=== PATIENT | male | born 1985 | race African-American/Black ===

== ENCOUNTER 2024-06-21 19:17 | Inpatient (IN) | payer MEDICAID, OTHER ==
--- NOTE | 2024-06-21 20:44 | ED ---
Psych HPI - General Chief Complaint: Psychiatric Symptoms Stated Complaint: Suicidal Time Seen by Provider: 06/21/24 20:41 Source: patient, RN notes reviewed Mode of arrival: ambulatory - History of Present Illness Initial Comments: 39-year-old male presenting for suicidal and homicidal ideation. States this has been ongoing over the past week however worsened in severity today. States he is having thoughts of harming himself and having auditory hallucinations telling him to harm others. States he has had hallucinations before but worsened in severity while he was in residential. He has been out of residential and on parole since 4 months ago. He began drinking alcohol around noon today. - Related Data Home Medications Medication Instructions Recorded Confirmed Acetaminophen Tab [Tylenol] 650 mg PO Q4H PRN 06/21/24 06/21/24 Aspirin EC [Ecotrin] 650 mg PO Q6H PRN 06/21/24 06/21/24 Ibuprofen [Motrin Ib] 400 mg PO Q6H PRN 06/21/24 06/21/24 PARoxetine [Paxil] 20 mg PO DAILY 06/21/24 06/21/24 QUEtiapine [SEROquel] 100 mg PO HS 06/21/24 06/21/24 Allergies Allergy/AdvReac Type Severity Reaction Status Date / Time diphenhydramine AdvReac "feels Verified 06/21/24 20:39 [From Johnna] miles" Review of Systems ROS Statement: Those systems with pertinent positive or pertinent negative responses have been documented in the HPI. ROS Other: All systems not noted in ROS Statement are negative. Past Medical History Additional Past Medical History / Comment(s): high blood pressure History of Any Multi-Drug Resistant Organisms: None Reported Additional Past Surgical History / Comment(s): sx on arms Past Psychological History: PTSD Smoking Status: Current every day smoker Past Alcohol Use History: Occasional Past Drug Use History: None Reported General Exam General appearance: alert, in no apparent distress, other (No eye contact) Head exam: Present: atraumatic, normocephalic, normal inspection Respiratory exam: Present: normal lung sounds bilaterally. Absent: respiratory distress, wheezes, rales, rhonchi, stridor Cardiovascular Exam: Present: regular rate, normal rhythm, normal heart sounds. Absent: systolic murmur, diastolic murmur, rubs, gallop, clicks Neurological exam: Present: alert, oriented X3 Psychiatric exam: Present: normal affect, normal mood, homicidal ideation, suicidal ideation Skin exam: Present: warm, dry, intact, normal color. Absent: rash Course Vital Signs 06/21/24 19:19 Temperature 98.3 F Pulse Rate 118 H Respiratory 18 Rate Blood Pressure 134/90 O2 Sat by Pulse 96 Oximetry Medical Decision Making - Medical Decision Making Was pt. sent in by a medical professional or institution (, PA, DAIRY FARMER, urgent care, hospital, or [facility]...) When possible be specific @ -No Did you speak to anyone other than the patient for history (EMS, parent, family, police, friend...)? What history was obtained from this source @ -No Did you review nursing and triage notes (agree or disagree)? Why? @ -I reviewed and agree with nursing and triage notes Were old charts reviewed (outside hosp., previous admission, EMS record, old EKG, old radiological studies, urgent care reports/EKG's, [facility] records)? Report findings @ -No old charts were reviewed Differential Diagnosis (chest pain, altered mental status, abdominal pain women, abdominal pain men, vaginal bleeding, weakness, fever, dyspnea, syncope, headache, dizziness, GI bleed, back pain, seizure, CVA, palpatations, mental health, musculoskeletal)? @ -Differential Mental Health Depression, anxiety, bipolar, psychosis, schizophrenia, borderline personality, situational depression, adjustment disorder, behavioral disorder, brain tumor, malingering, substance abuse, encephalopathy, medication reaction, dementia, hypothyroidism, degenerative neurologic disorder, lupus.... This is not meant to be all-inclusive list EKG interpreted by me (3pts min.). @ -None X-rays interpreted by me (1pt min.). @ -None done CT interpreted by me (1pt min.). @ -None done U/S interpreted by me (1pt. min.). @ -None done What testing was considered but not performed or refused? (CT, X-rays, U/S, labs)? Why? @ -None What meds were considered but not given or refused? Why? @ -None Did you discuss the management of the patient with other professionals (professionals i.e. , PA, DAIRY FARMER, lab, RT, psych nurse, long term care social worker, component design engineer, teacher, chief digital media officer, case management specialist)? Give summary @ -I spoke with EPS who recommends admission Was smoking cessation discussed for >3mins.? @ -No Was critical care preformed (if so, how long)? @ -No Were there social determinants of health that impacted care today? How? (Homelessness, low income, unemployed, alcoholism, drug addiction, transportation, low edu. Level, literacy, decrease access to med. care, residential, rehab)? @ -No Was there de-escalation of care discussed even if they declined (Discuss DNR or withdrawal of care, Hospice)? DNR status @ -No What co-morbidities impacted this encounter? (DM, HTN, Smoking, COPD, CAD, Cancer, CVA, ARF, Chemo, Hep., AIDS, mental health diagnosis, sleep apnea, mor bid obesity)? @ -None Was patient admitted / discharged? Hospital course, mention meds given and rou te, prescriptions, significant lab abnormalities, going to OR and other pertinent info. @ - admitted. 39-year-old male presenting for suicidal and homicidal ideation. States he is experiencing auditory hallucinations telling him to hurt people. No medical complaints. BAT 0.07. Serum alcohol 95. Patient is medically cleared to be seen by EPS. EPS recommends psychiatric admission. I agree with this plan. Case was discussed with my ED attending Dr. Desai. Undiagnosed new problem with uncertain prognosis? @ -No Drug Therapy requiring intensive monitoring for toxicity (Heparin, Nitro, In sulin, Cardizem)? @ -No Were any procedures done? @ -No Diagnosis/symptom? @ -Suicidal ideation, homicidal ideation Acute, or Chronic, or Acute on Chronic? @ -Acute Uncomplicated (without systemic symptoms) or Complicated (systemic symptoms)? @ -Complicated Side effects of treatment? @ -No Exacerbation, Progression, or Severe Exacerbation? @ -No Poses a threat to life or bodily function? How? (Chest pain, [place], RI, pneumonia, PE, COPD, DKA, ARF, appy, cholecystitis, CVA, Diverticulitis, Homicidal, Suicidal, threat to staff... and all critical care pts) @ -Yes, suicidal, homicidal - Lab Data Result diagrams: 06/21/24 21:27 06/21/24 21:27 Lab Results 06/21/24 06/21/24 Range/Units 21:27 21:27 WBC 5.2 (3.8-10.6) k/uL RBC 5.43 (4.30-5.90) m/uL Hgb 16.6 (13.0-17.5) gm/dL Hct 50.5 (39.0-53.0) % MCV 93.0 (80.0-100.0) fL MCH 30.6 (25.0-35.0) pg MCHC 32.9 (31.0-37.0) g/dL RDW 12.9 (11.5-15.5) % Plt Count 290 (150-450) k/uL MPV 7.3 Neutrophils % 54 % Lymphocytes % 34 % Monocytes % 5 % Eosinophils % 3 % Basophils % 1 % Neutrophils # 2.8 (1.3-7.7) k/uL Lymphocytes # 1.8 (1.0-4.8) k/uL Monocytes # 0.3 (0-1.0) k/uL Eosinophils # 0.2 (0-0.7) k/uL Basophils # 0.0 (0-0.2) k/uL Sodium 139 (137-145) mmol/L Potassium 4.4 (3.5-5.1) mmol/L Chloride 101 (98-107) mmol/L Carbon Dioxide 25 (22-30) mmol/L Anion Gap 13 mmol/L BUN 10 (9-20) mg/dL Creatinine 1.17 (0.66-1.25) mg/dL Est GFR (CKD-EPI)AfAm >90 (>60 ml/min/1.73 sqM) Est GFR (CKD-EPI)NonAf 78 (>60 ml/min/1.73 sqM) Glucose 91 (74-99) mg/dL Calcium 9.7 (8.4-10.2) mg/dL Total Bilirubin 0.5 (0.2-1.3) mg/dL AST 35 (17-59) U/L ALT 59 H (4-49) U/L Alkaline Phosphatase 67 (38-126) U/L Total Protein 8.3 H (6.3-8.2) g/dL Albumin 4.9 (3.5-5.0) g/dL Serum Alcohol 95 mg/dL Disposition Clinical Impression: Suicidal ideation, Homicidal ideation Disposition: ADMITTED IP TO THIS HOSP Referrals: Castleton,Cedrick G, MD [Primary Care Provider] - 1-2 days Time of Disposition: 22:50
[2024-06-21] MEDS: IBUPROFEN 600 MG TAB PO STA (21:11)
[2024-06-21 21:50] LABS: Basophils % (A) 1 %; Eosinophils # (A) 0.2 k/uL (0-0.7); Eosinophils % (A) 3 %; HCT 50.5 % (39.0-53.0); HGB 16.6 gm/dL (13.0-17.5); Lymphocytes # (A) 1.8 k/uL (1.0-4.8); Lymphocytes % (A) 34 %; MCH 30.6 pg (25.0-35.0); MCHC 32.9 g/dL (31.0-37.0); Mean Platelet Volume 7.3; Monocytes # (A) 0.3 k/uL (0-1.0); Monocytes % (A) 5 %; Neutrophils # (A) 2.8 k/uL (1.3-7.7); Neutrophils % (A) 54 %; Platelet Count 290 k/uL (150-450); RBC 5.43 m/uL (4.30-5.90); RDW 12.9 % (11.5-15.5); WBC 5.2 k/uL (3.8-10.6)
[2024-06-21 22:05] LABS: ALT 59 U/L (4-49); AST 35 U/L (17-59); African American GFR (CKD) >90 (>60 ml/min/1.73 sqM); Albumin 4.9 g/dL (3.5-5.0); Alkaline Phosphatase 67 U/L (38-126); Anion Gap 13 mmol/L; Blood Urea Nitrogen 10 mg/dL (9-20); Calcium 9.7 mg/dL (8.4-10.2); Carbon Dioxide 25 mmol/L (22-30); Chloride 101 mmol/L (98-107); Glucose 91 mg/dL (74-99); Non-African American GFR(CKD) 78 (>60 ml/min/1.73 sqM); Potassium 4.4 mmol/L (3.5-5.1); Sodium 139 mmol/L (137-145); Total Bilirubin 0.5 mg/dL (0.2-1.3); Total Protein 8.3 g/dL (6.3-8.2)
[2024-06-21 22:34] LABS: Alcohol 95 mg/dL
[2024-06-22 01:21] LABS: Influenza A Not Detected (Not Detectd); Influenza B Not Detected (Not Detectd); RSV Not Detected (Not Detectd)
[2024-06-22] MEDS ORDERED: HALOPERIDOL LACTATE 5 MG/ML 1 ML VIAL IM PRN (03:15)
[2024-06-22] MEDS ORDERED: haloperidoL 5 MG TAB PO PRN (03:15)
[2024-06-22] MEDS ORDERED: ACETAMINOPHEN TAB 325 MG TAB PO PRN (03:15)
[2024-06-22] MEDS ORDERED: MAGNESIUM HYDROXIDE 2,400 MG/30 ML CUP PO PRN (03:15)
[2024-06-22] MEDS ORDERED: LORazepam 2 MG/ML INJ IM PRN (03:15)
[2024-06-22] MEDS ORDERED: LORazepam 1 MG TAB PO PRN ×2 (03:15)
[2024-06-22] MEDS ORDERED: MAG HYDROX/AL HYDROX/SIMETH 355 ML BOTTLE PO PRN (03:15)
[2024-06-22] MEDS ORDERED: traZODone HCL 50 MG TAB PO PRN (03:15)
[2024-06-22] MEDS: NICOTINE 14MG/24HR PATCH TRANSDERM SCH (08:49)
--- NOTE | 2024-06-22 16:36 | P.HP ---
Psychiatric H&P - . H&P Date: 06/22/24 History & Physical: Allergies Allergy/AdvReac Type Severity Reaction Status Date / Time diphenhydramine AdvReac "feels Verified 06/21/24 20:39 [From Benadryl] weird" Vital Signs Temp 96.7 F L 06/22/24 04:39 Pulse 84 06/22/24 04:39 Resp 16 06/22/24 04:39 BP 128/58 06/22/24 04:39 Pulse Ox 97 06/22/24 04:39 FiO2 Intake & Output 06/21/24 06/22/24 06/22/24 18:59 06:59 18:59 Weight 79.379 kg Laboratory Last Values WBC 5.2 k/uL (3.8-10.6) 06/21/24 21: RBC 5.43 m/uL (4.30-5.90) 06/21/24 21:27 Hgb 16.6 gm/dL (13.0-17.5) 06/21/24 21: Hct 50.5 % (39.0-53.0) 06/21/24 21: MCV 93.0 fL (80.0-100.0) 06/21/24 21: MCH 30.6 pg (25.0-35.0) 06/21/24 21: MCHC 32.9 g/dL (31.0-37.0) 06/21/24 21: RDW 12.9 % (11.5-15.5) 06/21/24 21:27 Plt Count 290 k/uL (150-450) 06/21/24 21: MPV 7.3 06/21/24 21: Neutrophils % 54 % 06/21/24 21: Lymphocytes % 34 % 06/21/24 21: Monocytes % 5 % 06/21/24 21: Eosinophils % 3 % 06/21/24 21: Basophils % 1 % 06/21/24 21: Neutrophils # 2.8 k/uL (1.3-7.7) 06/21/24 21: Lymphocytes # 1.8 k/uL (1.0-4.8) 06/21/24 21: Monocytes # 0.3 k/uL (0-1.0) 06/21/24 21: Eosinophils # 0.2 k/uL (0-0.7) 06/21/24: Basophils # 0.0 k/uL (0-0.2) 06/21/24 21: Sodium 139 mmol/L (137-145) 06/21/24: Potassium 4.4 mmol/L (3.5-5.1) 06/21/24: Chloride 101 mmol/L (98-107) 06/21/24: Carbon Dioxide 25 mmol/L (22-30) 06/21/24: Anion Gap 13 mmol/L 06/21/24: BUN 10 mg/dL (9-20) 06/21/24: Creatinine 1.17 mg/dL (0.66-1.25) 06/21/24: Est GFR (CKD-EPI)AfAm >90 (>60 ml/min/1.73 sqM) 06/21/24: Est GFR (CKD-EPI)NonAf 78 (>60 ml/min/1.73 sqM) 06/21/24: Glucose 91 mg/dL (74-99) 06/21/24: Calcium 9.7 mg/dL (8.4-10.2) 06/21/24: Total Bilirubin 0.5 mg/dL (0.2-1.3) 06/21/24: AST 35 U/L (17-59) 06/21/24: ALT 59 U/L (4-49) H 06/21/24: Alkaline Phosphatase 67 U/L (38-126) 06/21/24: Total Protein 8.3 g/dL (6.3-8.2) H 06/21/24: Albumin 4.9 g/dL (3.5-5.0) 06/21/24: Serum Alcohol 95 mg/dL 06/21/24 21: Influenza Type A (PCR) Not Detected (Not Detectd) 06/22/24 00:36 Influenza Type B (PCR) Not Detected (Not Detectd) 06/22/24 00:36 RSV (PCR) Not Detected (Not Detectd) 06/22/24 00:36 SARS-CoV-2 (PCR) Not Detected (Not Detectd) 06/22/24 00:36 06/22/24 16:30 39-year-old male presenting for suicidal and homicidal ideation. States this has been ongoing over the past week however worsened in severity today. States he is having thoughts of harming himself and having auditory hallucinations telling him to harm others. States he has had hallucinations before but worsened in severity [facility] was [facility]. He has been out of [facility] and on [facility] since 4 months ago. He began drinking alcohol around noon today. He says he does not have a long-term history of psychosis although he has been treated with low-dose Seroquel for many years. He says when seems are brought this on was isolation he experienced in [facility] and then he began to feel like people were talking about him and plotting against him saying things about him and threatening him he began to hear voices and the voices told him that he was in danger and he should hurt the other people other times told them he should hurt himself. He tried to treat IT with alcohol which made it much worse. Past history the patient been treated with low-dose Seroquel for a long time and also Paxil and he thinks maybe she get back on those. Social history the patient is the youngest of 5 children born to his parents and his father at 36 in [facility] developed some sort of cancer. His mom is still alive and he gets along well with her. He gets along well with his siblings . the patient has never been marriedhe has been with several women and has 2 children daughters 22 and 12 any still has relationships with them. In school he dropped out in the 10th grade no history He has been in [facility] for a total of 11 years mostly for abusing drugs and alcohol. He does not have a job he was on SSI before he went to [facility] is trying to get that back Mental status exam the patient is alert and cooperative he was sitting in the community room when I came to get him and he came readily. [place] and self-care gait and station are normal good eye contact. He is oriented to person place time and circumstances. He could remember 3 of 3 objects after 3 minutes and he could subtract 7 from 107 from 93 he did have to slow down and concentrate to be able to do that when asked to abstract the proverb the grass looks screen and outside offense he said make the best of what to have. General information is rather low he was not sure who the current president or previous Presidents were could not name any of the [place]. There did not seem to be any response to voices or psychotic issues while we were talking. No aggression. Assessment patient with chronic history of depression no clear mood swings and more recently the depression became severe enough to cause mild psychotic overlay that was quite dangerous. At this point I think it hernandez to control the psychosis. We may need to add something with Paxil caused him to be quite hungry and would put on weight so I think we'll stick with the Seroquel and add antidepressant later if that seems indicated. We'll start with 300 of Seroquel at night.the patient currently a danger to self and others as he has psychosis telling him to do bad things to himself and others. He is already starting to calm down by taking staying off the alcohol and he will need to go to a rehab program after this Diagnosis major depression with psychosis
[2024-06-22] MEDS: QUEtiapine 100 MG TAB PO SCH (21:09)
--- NOTE | 2024-06-23 03:14 | CONS ---
CONSULTATION CHIEF COMPLAINT: Major depression. HISTORY OF PRESENT ILLNESS: This 39-year-old gentleman presented to the emergency room complaining of suicidal thoughts. He is admitted to the psychiatric unit. Review of systems, past medical history, family history and personal and social histories are all unremarkable and detailed in his admitting summary. PHYSICAL EXAM: Deferred because the patient was not available at that time I was on the floor. DIAGNOSIS: Major depression with suicidal thoughts. RECOMMENDATIONS: None at this time. MMODL / IJN: [id number] /
[2024-06-23 07:26] LABS: Basophils % (A) 1 %; Eosinophils # (A) 0.2 k/uL (0-0.7); Eosinophils % (A) 6 %; HCT 46.6 % (39.0-53.0); HGB 14.9 gm/dL (13.0-17.5); Lymphocytes # (A) 1.9 k/uL (1.0-4.8); Lymphocytes % (A) 48 %; MCH 30.6 pg (25.0-35.0); MCHC 31.9 g/dL (31.0-37.0); MCV 95.8 fL (80.0-100.0); Mean Platelet Volume 7.5; Monocytes # (A) 0.2 k/uL (0-1.0); Monocytes % (A) 6 %; Neutrophils # (A) 1.5 k/uL (1.3-7.7); Neutrophils % (A) 38 %; Platelet Count 259 k/uL (150-450); RBC 4.86 m/uL (4.30-5.90); RDW 13.2 % (11.5-15.5)
[2024-06-23 07:46] LABS: ALT 42 U/L (4-49); AST 27 U/L (17-59); African American GFR (CKD) >90 (>60 ml/min/1.73 sqM); Albumin 3.7 g/dL (3.5-5.0); Alkaline Phosphatase 55 U/L (38-126); Anion Gap 6 mmol/L; Blood Urea Nitrogen 18 mg/dL (9-20); Calcium 9.2 mg/dL (8.4-10.2); Carbon Dioxide 31 mmol/L (22-30); Chloride 101 mmol/L (98-107); Glucose 84 mg/dL (74-99); Non-African American GFR(CKD) 78 (>60 ml/min/1.73 sqM); Potassium 4.2 mmol/L (3.5-5.1); Sodium 138 mmol/L (137-145); Total Protein 6.6 g/dL (6.3-8.2)
[2024-06-23 08:12] LABS: Bilirubin,Unconjugated 0.3 mg/dL (0.0-1.1); Total Bilirubin 0.3 mg/dL (0.2-1.3)
[2024-06-23 12:43] LABS: LDL Cholesterol,Calculated 105.2 mg/dL (0.0-131.0); VLDL Calculation 14.06 mg/dL (5.00-40.00)
--- NOTE | 2024-06-23 12:54 | P.PN ---
Subjective Progress Note Date: 06/23/24 Principal diagnosis: Major depression recurrent with psychosis Subjective: Slept well no psychotic breakthroughs, not too sleepy on Seroquel, wants to get into rehab Mental status exam the patient is alert and cooperative he was sitting in the community room when I came to get him and he came readily. [place] and self-care gait and station are normal good eye contact. He is oriented to person place time and circumstances. He could remember 3 of 3 objects after 3 minutes and he could subtract 7 from 107 from 93 he did have to slow down and concentrate to be able to do that when asked to abstract the proverb the grass looks screen and outside offense he said make the best of what to have. General information is rather low he was not sure who the current president or previous Presidents were could not name any of the [place]. There did not seem to be any response to voices or psychotic issues while we were talking. No aggression. Assessment patient with chronic history of depression no clear mood swings and more recently the depression became severe enough to cause mild psychotic overlay that was quite dangerous. At this point I think it hernandez to control the psychosis. We may need to add something for depressio but Paxil caused him to be quite hungry and would put on weight so I think we'll stick with the Seroquel and add antidepressant later if that seems indicated. We started with 300 of Seroquel at night.the patient currently a danger to self and others as he has psychosis telling him to do bad things to himself and others. He is already sta rting to calm down by taking staying off the alcohol and he will need to go to a rehab program after this Plan: no change of medications Diagnosis major depression with psychosis Objective - Vital Signs Vital signs: Vital Signs Temp 96.7 F L 06/22/24 04:39 Pulse 84 06/22/24 04:39 Resp 16 06/22/24 04:39 BP 128/58 06/22/24 04:39 Pulse Ox 97 06/22/24 04:39 FiO2 - Labs CBC & Chem 7: 06/23/24 06:36 06/23/24 06:36 Labs: Abnormal Lab Results - Last 24 Hours (Table) 06/23/24 Range/Units 06:36 Carbon Dioxide 31 H (22-30) mmol/L HDL Cholesterol 62.70 H (40.00-60.00) mg/dL
--- NOTE | 2024-06-24 16:30 | P.PN ---
Progress Note - Text Progress Note Date: 06/24/24 Interval History: Patient was directable and agreeable to speak with technical writer and editor in the office. He rep orts mood is "ok, good". At this time patient denies any suicidal or homicidal ideation, intent or plan. Patient denies any auditory, visual hallucinations and denies any paranoia or delusions. Patient denies any side effects from the medications and has been compliant with meds. He has been sleeping well, at least 7+ hours per night. He has attended one group today but missed the others. He reports he plans to go to rehab after discharge. He has the number to the Access line to call tomorrow because today is a holiday. Mental Status Exam: General Appearance: Patient appears to be stated age, hair in ziyad, dressed in black sweats, +tattoos on hands, fair hygiene/grooming. Behavior: Patient is calmly seated without any agitated behavior. Speech: Patient's speech is fluent and non-pressured. Mood/Affect: Mood is "ok, good", affect is congruent and constricted. Suicidality/Homicidality: Patient denies having any suicidal or homicidal ideation intent or plan. Perceptions: Patient denies any visual hallucinations and denies any auditory hallucinations. Though content/process: There is no evidence of any delusional thought content and thought process is linear and goal-directed. Memory and concentration: AOX3, grossly intact for the purposes of this session Judgment and insight: Improving mildly Assessment: Unspecified depressive disorder, r/o MDD vs alcohol-induced depressive disorder Alcohol use disorder, severe Plan: -Patient continues to meet criteria for inpatient psychiatric admission for symptom stabilization and safety. Patient has signed adult voluntary form and medication consent and was placed in patient's chart. -Medications: Continue Seroquel 300 mg QHS for psychosis/mood. Continue Trazodone 50 mg QHS PRN for sleep. -When necessary Ativan and Haldol for agitation/aggression. -NRT - nicotine patch -SW on board for discharge planning. Encouraged the patient to participate in milieu. -Plan to discharge in the next 1-2 days if he continues to stabilize and when bed available at rehab.
[2024-06-24] MEDS: QUEtiapine 50 MG TAB PO SCH (21:48)
[2024-06-25] MEDS ORDERED: LORazepam 1 MG TAB PO PRN (12:45)
--- NOTE | 2024-06-25 12:50 | P.PN ---
Progress Note - Text Progress Note Date: 06/25/24 Interval History: Patient was directable and agreeable to speak with appeals writer in the office. He went through an overview of how he got to the hospital. Claims that he relapsed back on drinking, was staying [facility]. States that he was having violent thoughts towards others. Claims that since being started on the Seroquel he has been doing better has been sleeping at nighttime. Claims that his appetite is also improving. Claims that his mood and anxiety have been improving at this time. He claims that he is trying to get back into rehab, waiting for [facility] to approve him. Claims that he just did the screening earlier this morning with them.. At this time patient denies any suicidal or homicidal ideation, intent or plan. Patient denies any auditory, visual hallucinations and denies any paranoia or delusions. Patient denies any side effects from the medications and has been compliant with meds. Mental Status Exam: General Appearance: Patient appears to be stated age, hair in ziyad, dressed in black sweats, tattoos on hands, fair hygiene/grooming. Behavior: Patient is calmly seated without any agitated behavior. Temps to cooperate Speech: Patient's speech is fluent and non-pressured. Mood/Affect: Mood is "better", affect is congruent and constricted. Improving mildly Suicidality/Homicidality: Patient denies having any suicidal or homicidal ideation intent or plan. Perceptions: Patient denies any visual hallucinations and denies any auditory hallucinations. Though content/process: There is no evidence of any delusional thought content and thought process is linear and goal-directed. More future oriented today Memory and concentration: AOX3, grossly intact for the purposes of this session Judgment and insight: Improving mildly Assessment: depressive disorder unspecified, rule out bipolar disorder depression versus major depressive disorder Alcohol use disorder, severe Homelessness Plan: -Patient continues to meet criteria for inpatient psychiatric admission for symptom stabilization and safety. Patient has signed adult voluntary form and medication consent and was placed in patient's chart. -Medications: Continue Seroquel 150 mg QHS for psychosis/mood. Continue Trazodone 50 mg QHS PRN for sleep. -When necessary Ativan and Haldol for agitation/aggression. -CIWA protocol with as needed Ativan for alcohol withdrawal. Continue to monitor vital signs. -NRT - nicotine patch -SW on board for discharge planning. Encouraged the patient to participate in milieu. -Plan to discharge in the next 1-2 days if he continues to stabilize and when bed available at rehab at [facility].
[2024-06-26 06:27] VITALS: BP 127/79; PULSE 78; RESP 15; TEMP 97.5
--- NOTE | 2024-06-26 10:06 | P.PN ---
Progress Note - Text Progress Note Date: 06/26/24 Interval History: Patient was directable and agreeable to speak with policy writer sales in the office. Jeanette ent claims that he is still waiting on [facility] to accept him. States that he will need a ride to rehab. He is denying any withdrawal symptoms at this time. Claims that his mood is improving, also claims that his anxiety is proving as well. He states that he was able to sleep fairly last night. Mainly keeping himself on the unit and not going to many groups. Claims that his appetite is improving as well. At this time patient denies any suicidal or homicidal ideation, intent or plan. Patient denies any auditory, visual hallucinations and denies any paranoia or delusions. Patient denies any side effects from the medications and has been compliant with meds. Mental Status Exam: General Appearance: Patient appears to be stated age, hair in ziyad, dressed in black sweats, tattoos on hands, fair hygiene/grooming. Behavior: Patient is calmly seated without any agitated behavior. attempts to cooperate Speech: Patient's speech is fluent and non-pressured. Mood/Affect: Mood is "good", affect is congruent and Improving mildly Suicidality/Homicidality: Patient denies having any suicidal or homicidal ideation intent or plan. Perceptions: Patient denies any visual hallucinations and denies any auditory hallucinations. Though content/process: There is no evidence of any delusional thought content and thought process is linear and goal-directed. future oriented today Memory and concentration: AOX3, grossly intact for the purposes of this session Judgment and insight: Improving mildly Assessment: depressive disorder unspecified, rule out bipolar disorder depression versus major depressive disorder Alcohol use disorder, severe Homelessness Plan: -Patient continues to meet criteria for inpatient psychiatric admission for symptom stabilization and safety. Patient has signed adult voluntary form and medication consent and was placed in patient's chart. -Medications: Continue Seroquel 150 mg QHS for psychosis/mood. Continue Trazodone 50 mg QHS PRN for sleep. -When necessary Ativan and Haldol for agitation/aggression. -CIWA protocol with as needed Ativan for alcohol withdrawal. Continue to monitor vital signs. -NRT - nicotine patch -SW on board for discharge planning. Encouraged the patient to participate in milieu. -Plan to discharge to rehab, awaiting intake date.
[2024-06-26] MEDS: IBUPROFEN 600 MG TAB PO PRN (13:20)
--- NOTE | 2024-06-27 11:13 | P.PN ---
Progress Note - Text Progress Note Date: 06/27/24 Interval History: Patient was directable and agreeable to speak with technical writer in the office. Jeanette ent states that he is able to go to [place] tomorrow, will be picked up by a shuttle and taken there. He states that he is feeling more optimistic today, not endorsing any depression. Claims that he fell asleep early last night and did not take the Seroquel. Denies any withdrawal symptoms at this time from alcohol. Claims that he is eating more at this time, trying to go to some groups. At this time patient denies any suicidal or homicidal ideation, intent or plan. Patient denies any auditory, visual hallucinations and denies any paranoia or delusions. Patient denies any side effects from the medications and has been compliant with meds. Mental Status Exam: General Appearance: Patient appears to be stated age, hair in ziyad, dressed in black sweats, tattoos on hands, fair hygiene/grooming. Behavior: Patient is calmly seated without any agitated behavior. Cooperative Speech: Patient's speech is fluent and non-pressured. Mood/Affect: Mood is "pretty well", affect is congruent and Improving mildly Suicidality/Homicidality: Patient denies having any suicidal or homicidal ideation intent or plan. Perceptions: Patient denies any visual hallucinations and denies any auditory hallucinations. Though content/process: There is no evidence of any delusional thought content and thought process is linear and goal-directed. future oriented today Memory and concentration: AOX3, grossly intact for the purposes of this session Judgment and insight: Improving mildly Assessment: depressive disorder unspecified, rule out bipolar disorder depression versus major depressive disorder Alcohol use disorder, severe Homelessness Plan: -Patient continues to meet criteria for inpatient psychiatric admission for symptom stabilization and safety. Patient has signed adult voluntary form and medication consent and was placed in patient's chart. -Medications: Continue Seroquel 150 mg QHS for psychosis/mood Continue Trazodone 50 mg QHS PRN for sleep -When necessary Ativan and Haldol for agitation/aggression. -d/c [facility] protocol today -NRT - nicotine patch -SW on board for discharge planning. Encouraged the patient to participate in milieu. -Plan to discharge to rehab tomorrow morning
--- NOTE | 2024-06-28 11:08 | P.DS ---
Providers Date of admission: 06/22/24 03:05 Expected date of discharge: 06/28/24 Attending physician: Wilfrid Bridges MD Consults: 06/22/24 03:15 Consult Physician Routine Consulting Provider: Cedrick Bustos Consult Reason/Comments: Medical managment Do you want consulting provider notified?: Yes, Notify in am Primary care physician: Cedrick Bustos - Discharge Diagnosis(es) (1) Depressive disorder Current Visit: Yes Status: Acute Priority: High (2) Alcohol use disorder, severe, dependence Current Visit: Yes Status: Acute Priority: High (3) Homelessness Current Visit: Yes Status: Acute Priority: Medium Hospital Course: Admission HPI: Admission note was completed by Dr. Barba "39-year-old male presenting for suicidal and homicidal ideation. States this has been ongoing over the past week however worsened in severity today. States he is having thoughts of montanez rming himself and having auditory hallucinations telling him to harm others. States he has had hallucinations before but worsened in severity while he was in [facility]. He has been out of [facility] and on parole since 4 months ago. He began drinking alcohol around noon today. He says he does not have a long-term history of psychosis although he has been treated with low-dose Seroquel for many years. He says when seems are brought this on was isolation he experienced in assisted and then he began to feel like people were talking about him and plotting against him saying things about him and threatening him he began to hear voices and the voices told him that he was in danger and he should hurt the other people other times told them he should hurt himself. He tried to treat IT with alcohol which made it much worse." Hospital course: Upon admission to the unit patient was directable and agreeable to commence treatment and signed adult voluntary form. Patient got along well with other patients on the unit and followed unit protocol. Patient was compliant with the medications and denied any side effects throughout hospital course. Patient was started on Seroquel 150 milligrams nightly for mood stabilization/insomnia. Trazodone as needed for sleep. Patient was also on CIWA protocol with as needed Ativan for alcohol withdrawal. He declined any anticraving medications for alcohol use. Patient spoke of his stressors and engaged in therapy both group and individual. Patient was also seen by medical team for history and physical exam. Throughout the course of the hospitalization patient gradually improved with regards to mood, anxiety, sleep and returned back to their baseline level of functioning. On the day of discharge patient denied any suicidal or homicidal ideations intent or plan denied any auditory or visual hallucinations. Patient endorsed wanting to live for their health, Bridie and family. The patient denied any access to guns or weapons. Patient denied any paranoia and did not endorse any delusions. Patient does have a significant history of substance abuse and was counseled on abstaining from all substances including alcohol and marijuana. Patient ended up agreeing to inpatient subtance rehab, patient was admitted to [facility] and will be discharged directly there from the unit. Patient was also counseled on the medications and need for regular compliance and was encouraged to follow-up with their outpatient appointment for mental health and also for primary care. Mental status exam: General Appearance: Patient appears to be thin, dreaded hair, stated age is alert, pleasant, and cooperative. Patient is in no acute distress and has improved hygiene and grooming Behavior: Patient is calmly seated without any agitated behavior. Speech: Patient's speech is fluent and nonpressured. Mood/Affect: Patient reports their mood is "good", affect is congruent and euthymic. Suicidality/Homicidality: Patient denies having any suicidal or homicidal ideation intent or plan. Perceptions: Patient denies any auditory or visual hallucinations. Though content/process: There is no evidence of any delusional thought content and thought process is linear and goal-directed. More future oriented Memory and concentration: AOX3, grossly intact for the purposes of this session. Can spell "WORLD" backwards correctly. Judgment and insight: improved with guarded prognosis Impression: Depressive disorder unspecified, rule out bipolar depression versus major depressive disorder Alcohol use disorder severe dependence Homelessness Plan: -Continue with discharge today as patient has improved and stabilized psychiatrically and is not currently an imminent threat to themself and/or others. Patient will remain at chronically elevated risk for harm to self and/or others due to their impulsivity and substance abuse. -Continue medications: Seroquel 150 mg nightly for mood stabilization/insomnia. Patient did not use any trazodone, will not be prescribed this upon discharge. -Patient was counseled on the need for medication compliance and appropriate follow-up at mental health and also primary care for medical issues. Patient verbalized understanding and agreed. -Social work to help coordinate patients discharge today and transportation to the shuttle that will take him to [facility] for rehab. also to ensure safe home environment that guns/weapons are either removed from the home or locked away. Social work also to arrange for patients follow up appointments with [facility] for psychiatric care along with follow up with primary care provider. -Patient counseled on abstaining from recreational drugs and marijuana and alcohol. Was informed/educated on the adverse effects on their physical and mental health. Patient verbally agreed and understood. -Patient was instructed to return to the hospital or seek immediate medical care if their psychiatric or medical symptoms do worsen or reoccur. Allergies Allergy/AdvReac Type Severity Reaction Status Date / Time diphenhydramine AdvReac "feels Verified 06/21/24 20:39 [From Benadryl] weird" Laboratory Results WBC 4.0 k/uL (3.8-10.6) 06/23/24 06:36 RBC 4.86 m/uL (4.30-5.90) 06/23/24 06:36 Hgb 14.9 gm/dL (13.0-17.5) 06/23/24 06:36 Hct 46.6 % (39.0-53.0) 06/23/24 06:36 MCV 95.8 fL (80.0-100.0) 06/23/24 06:36 MCH 30.6 pg (25.0-35.0) 06/23/24 06:36 MCHC 31.9 g/dL (31.0-37.0) 06/23/24 06:36 RDW 13.2 % (11.5-15.5) 06/23/24 06:36 Plt Count 259 k/uL (150-450) 06/23/24 06:36 MPV 7.5 06/23/24 06:36 Neutrophils % 38 % 06/23/24 06:36 Lymphocytes % 48 % 06/23/24 06:36 Monocytes % 6 % 06/23/24 06:36 Eosinophils % 6 % 06/23/24 06:36 Basophils % 1 % 06/23/24 06:36 Neutrophils # 1.5 k/uL (1.3-7.7) 06/23/24 06:36 Lymphocytes # 1.9 k/uL (1.0-4.8) 06/23/24 06:36 Monocytes # 0.2 k/uL (0-1.0) 06/23/24 06:36 Eosinophils # 0.2 k/uL (0-0.7) 06/23/24 06:36 Basophils # 0.0 k/uL (0-0.2) 06/23/24 06:36 Sodium 138 mmol/L (137-145) 06/23/24 06:36 Potassium 4.2 mmol/L (3.5-5.1) 06/23/24 06:36 Chloride 101 mmol/L (98-107) 06/23/24 06:36 Carbon Dioxide 31 mmol/L (22-30) H 06/23/24 06:36 Anion Gap 6 mmol/L 06/23/24 06:36 BUN 18 mg/dL (9-20) 06/23/24 06:36 Creatinine 1.17 mg/dL (0.66-1.25) 06/23/24 06:36 Est GFR (CKD-EPI)AfAm >90 (>60 ml/min/1.73 sqM) 06/23/24 06:36 Est GFR (CKD-EPI)NonAf 78 (>60 ml/min/1.73 sqM) 06/23/24 06:36 Glucose 84 mg/dL (74-99) 06/23/24 06:[address] Glu mg/dL 108 mg/dL 06/23/24 06:36 Hemoglobin A1c 5.4 % (<=6.0) 06/23/24 06:36 Calcium 9.2 mg/dL (8.4-10.2) 06/23/24 06:36 Total Bilirubin 0.3 mg/dL (0.2-1.3) 06/23/24 06:36 Conjugated Bilirubin 0.0 mg/dL (0.0-0.3) 06/23/24 06:36 Unconjugated Bilirubin 0.3 mg/dL (0.0-1.1) 06/23/24 06:36 Delta Bilirubin 0.0 mg/dL (0.0-0.2) 06/23/24 06:36 AST 27 U/L (17-59) 06/23/24 06:36 ALT 42 U/L (4-49) 06/23/24 06:36 Alkaline Phosphatase 55 U/L (38-126) 06/23/24 06:36 Total Protein 6.6 g/dL (6.3-8.2) 06/23/24 06:36 Albumin 3.7 g/dL (3.5-5.0) 06/23/24 06:36 Triglycerides 70.30 mg/dL (0.00-149.00) 06/23/24 06:36 Cholesterol 182.00 mg/dL (0.00-200.00) 06/23/24 06:36 LDL Cholesterol, Calc 105.2 mg/dL (0.0-131.0) 06/23/24 06:36 VLDL Cholesterol, Calc 14.06 mg/dL (5.00-40.00) 06/23/24 06:36 HDL Cholesterol 62.70 mg/dL (40.00-60.00) H 06/23/24 06:36 Cholesterol/HDL Ratio 2.90 Ratio 06/23/24 06:36 TSH 0.856 mIU/L (0.465-4.680) 06/23/24 06:36 Serum Alcohol 95 mg/dL 06/21/24 21:27 Influenza Type A (PCR) Not Detected (Not Detectd) 06/22/24 00:36 Influenza Type B (PCR) Not Detected (Not Detectd) 06/22/24 00:36 RSV (PCR) Not Detected (Not Detectd) 06/22/24 00:36 SARS-CoV-2 (PCR) Not Detected (Not Detectd) 06/22/24 00:36 Vital Signs Temp 97.5 F L 06/26/24 06:26 Pulse 78 06/26/24 06:26 Resp 15 06/26/24 06:26 BP 127/79 06/26/24 06:26 Pulse Ox 100 06/24/24 08:20 FiO2 Patient Condition at Discharge: Stable Plan - Discharge Summary New Discharge Prescriptions: New Ibuprofen [Motrin] 600 mg PO Q6HR PRN 30 Days #120 tab PRN Reason: Moderate Pain (Scale 4 To 6) QUEtiapine [SEROquel] 150 mg PO HS 30 Days #90 tab Acetaminophen Tab [Tylenol] 650 mg PO Q4HR PRN tab PRN Reason: Mild Pain (Scale 1 To 3) Discontinued QUEtiapine [SEROquel] 100 mg PO HS Ibuprofen [Motrin Ib] 400 mg PO Q6H PRN PRN Reason: Pain PARoxetine [Paxil] 20 mg PO DAILY Aspirin EC [Ecotrin] 650 mg PO Q6H PRN PRN Reason: Pain Acetaminophen Tab [Tylenol] 650 mg PO Q4H PRN PRN Reason: Pain Discharge Medication List Acetaminophen Tab [Tylenol] 650 mg PO Q4HR PRN tab 06/28/24 [Rx] Ibuprofen [Motrin] 600 mg PO Q6HR PRN 30 Days #120 tab 06/28/24 [Rx] QUEtiapine [SEROquel] 150 mg PO HS 30 Days #90 tab 06/28/24 [Rx] Follow up Appointment(s)/Referral(s): [facility] [Outside] - 06/28/24 2:00 pm (Arrive at the old [employer] parking lot at 1245 to get a seat on the SHR van. ) Cedrick Bustos MD [Primary Care Provider] - 1-2 days Patient Instructions/Handouts: Depression (DC) Activity/Diet/Wound Care/Special Instructions: [facility] Discharge Info Avoid the use of street drugs and alcohol. Take all medications as prescribed. When you are in need of refills on your medications, please contact your outpatient medical provider and/or outpatient psychiatrist. Please go to your scheduled outpatient appointments for aftercare treatment. If symptoms return or become worse, call the crisis line at or and/or visit the nearest emergency room for assistance. National Suicide and Crisis Lifeline - call or text 329 Discharge Disposition: OTHER INSTITUTION NOT DEFINED
== END 2024-06-28 12:17 | DRG 750 ==
LOC: EC 19:17 → 3MHU 06-22 03:05
PROVIDERS: ADMIT Psychiatry & Neurology Psychiatry; ATTEND Psychiatry & Neurology Psychiatry
PROC: HZ2ZZZZ Detoxification Services for Substance Abuse Treatment (ICD-10-PCS; principal; 2024-06-22)
DX: F33.3 Major depressive disorder, recurrent, severe with psychotic symptoms (principal); R45.851 Suicidal ideations; R45.850 Homicidal ideations; Z11.52 Encounter for screening for COVID-19; Z88.8 Allergy status to other drugs, medicaments and biological substances; F41.9 Anxiety disorder, unspecified; F17.210 Nicotine dependence, cigarettes, uncomplicated; F10.20 Alcohol dependence, uncomplicated; F43.10 Post-traumatic stress disorder, unspecified; G47.00 Insomnia, unspecified; Z79.899 Other long term (current) drug therapy; Z59.00 Homelessness unspecified; Z71.41 Alcohol abuse counseling and surveillance of alcoholic; Z71.6 Tobacco abuse counseling
CPT/HCPCS: 36415; 80053; 80061; 80320; 82075; 82248; 83036; 84443; 85025; 87636; 99285

== ENCOUNTER 2024-08-18 02:50 | Inpatient (IN) | payer MEDICAID, OTHER ==
--- NOTE | 2024-08-18 03:06 | ED ---
General Adult HPI - General Chief complaint: Psychiatric Symptoms Stated complaint: anxiety Time Seen by Provider: 08/18/24 02:52 Source: patient, RN notes reviewed, old records reviewed Mode of arrival: ambulatory Limitations: no limitations - History of Present Illness Initial comments: 39-year-old male presenting for psychiatric evaluation. Patient reports increased anxiety and depression as well as suicidal thoughts. Denies suicide attempt. Patient denying physical complaint at this time. Denies drugs or alcohol. - Related Data Previous Rx's Medication Instructions Recorded Acetaminophen Tab [Tylenol] 650 mg PO Q4HR PRN tab 06/28/24 Ibuprofen [Motrin] 600 mg PO Q6HR PRN 30 Days #120 tab 06/28/24 QUEtiapine [SEROquel] 150 mg PO HS 30 Days #90 tab 06/28/24 Allergies Allergy/AdvReac Type Severity Reaction Status Date / Time diphenhydramine AdvReac "feels Verified 08/18/24 02:55 [From Johnna] miles" Review of Systems ROS Statement: Those systems with pertinent positive or pertinent negative responses have been documented in the HPI. ROS Other: All systems not noted in ROS Statement are negative. Past Medical History Past Medical History: Hypertension Additional Past Medical History / Comment(s): high blood pressure History of Any Multi-Drug Resistant Organisms: None Reported Past Surgical History: Orthopedic Surgery Additional Past Surgical History / Comment(s): sx on arms Past Anesthesia/Blood Transfusion Reactions: No Reported Reaction Past Psychological History: Anxiety, Depression, PTSD Smoking Status: Current every day smoker Past Alcohol Use History: Daily Past Drug Use History: None Reported - Past Family History Father Family Medical History: Unable to Obtain Mother Family Medical History: Unable to Obtain General Exam Limitations: no limitations General appearance: alert, in no apparent distress Head exam: Present: atraumatic, normocephalic Eye exam: Present: normal appearance, PERRL Neck exam: Present: normal inspection. Absent: tenderness, meningismus Respiratory exam: Present: normal lung sounds bilaterally. Absent: respiratory distress, wheezes Cardiovascular Exam: Present: regular rate, normal rhythm GI/Abdominal exam: Present: soft. Absent: distended, tenderness, guarding Extremities exam: Present: normal inspection, normal capillary refill Neurological exam: Present: alert, oriented X3, CN II-XII intact, normal gait. Absent: motor sensory deficit Psychiatric exam: Present: depressed, flat affect, suicidal ideation Skin exam: Present: warm, dry, intact Course Vital Signs 08/18/24 02:53 Temperature 98.2 F Pulse Rate 103 H Respiratory 20 Rate Blood Pressure 123/73 O2 Sat by Pulse 96 Oximetry Medical Decision Making - Medical Decision Making Was pt. sent in by a medical professional or institution (JESUS ALBERTO Carrion, RECESSING MACHINE OPERATOR, urgent care, hospital, or prison...) When possible be specific @ -No Did you speak to anyone other than the patient for history (EMS, parent, family, police, friend...)? What history was obtained from this source @ -No Did you review nursing and triage notes (agree or disagree)? Why? @ -I reviewed and agree with nursing and triage notes Were old charts reviewed (outside hosp., previous admission, EMS record, old EKG, old radiological studies, urgent care reports/EKG's, prison records)? Report findings @ -No old charts were reviewed Differential Mental Health Depression, anxiety, bipolar, psychosis, schizophrenia, borderline personality, situational depression, adjustment disorder, behavioral disorder, brain tumor, malingering, substance abuse, encephalopathy, medication reaction, dementia, h ypothyroidism, degenerative neurologic disorder, lupus.... This is not meant to be all-inclusive list EKG interpreted by me (3pts min.). @ -As above X-rays interpreted by me (1pt min.). @ -None done CT interpreted by me (1pt min.). @ -None done U/S interpreted by me (1pt. min.). @ -None done What testing was considered but not performed or refused? (CT, X-rays, U/S, labs)? Why? @ -None What meds were considered but not given or refused? Why? @ -None Did you discuss the management of the patient with other professionals (professionals i.e. JESUS ALBERTO Carrion, RECESSING MACHINE OPERATOR, lab, RT, psych nurse, director of social work, immigration lawyer, teacher, animal services officer, human services case manager)? Give summary @ -Patient evaluated by EPS, recommending inpatient psychiatric evaluation. Was smoking cessation discussed for >3mins.? @ -No Was critical care preformed (if so, how long)? @ -No Were there social determinants of health that impacted care today? How? (Homelessness, low income, unemployed, alcoholism, drug addiction, transportation, low edu. Level, literacy, decrease access to med. care, penitentiary, rehab)? @ -No Was there de-escalation of care discussed even if they declined (Discuss DNR or withdrawal of care, Hospice)? DNR status @ -No What co-morbidities impacted this encounter? (DM, HTN, Smoking, COPD, CAD, Cancer, CVA, ARF, Chemo, Hep., AIDS, mental health diagnosis, sleep apnea, morbid obesity)? @Depression and anxiety Was patient admitted / discharged? Hospital course, mention meds given and route, prescriptions, significant lab abnormalities, going to OR and other pertinent info. @39-year-old male presenting with depression, anxiety, suicidal ideation. Patient evaluated by EPS nurse and felt to require inpatient psychiatric care. I do agree with this assessment. Patient does test positive for RSV and given this diagnosis he cannot go directly to the mental health unit. He will be medically admitted with psychiatry on consult. He is admitted to his primary care provider Dr. Bustos. Undiagnosed new problem with uncertain prognosis? @ -No Drug Therapy requiring intensive monitoring for toxicity (Heparin, Nitro, Insulin, Cardizem)? @ -No Were any procedures done? @ -No Diagnosis/symptom? @ -Depression, suicidal ideation, RSV Acute, or Chronic, or Acute on Chronic? @Acute Uncomplicated (without systemic symptoms) or Complicated (systemic symptoms)? @ -Default Side effects of treatment? @ -No Exacerbation, Progression, or Severe Exacerbation? @ -No Poses a threat to life or bodily function? How? (Chest pain, [place], [place], pneumonia, PE, COPD, DKA, ARF, appy, cholecystitis, CVA, Diverticulitis, Homicidal, Suicidal, threat to staff... and all critical care pts) @Yes, self-harm - Lab Data Lab Results 08/18/24 08/18/24 Range/Units 03:08 03:18 Urine Opiates Screen Not Detected (NotDetected) Ur Oxycodone Screen Not Detected (NotDetected) Urine Methadone Screen Not Detected (NotDetected) Ur Barbiturates Screen Not Detected (NotDetected) U Tricyclic Antidepress Not Detected (NotDetected) Ur Phencyclidine Scrn Not Detected (NotDetected) Ur Amphetamines Screen Detected H (NotDetected) U Methamphetamines Scrn Detected H (NotDetected) U Benzodiazepines Scrn Not Detected (NotDetected) Urine Cocaine Screen Not Detected (NotDetected) U Marijuana (THC) Screen Not Detected (NotDetected) Influenza Type A (PCR) Not Detected (Not Detectd) Influenza Type B (PCR) Not Detected (Not Detectd) RSV (PCR) Detected A (Not Detectd) SARS-CoV-2 (PCR) Not Detected (Not Detectd) Disposition Clinical Impression: Suicidal ideation, Depressive disorder, RSV (respiratory syncytial virus infection) Disposition: ADMITTED IP TO THIS HOSP Condition: Stable Is patient prescribed a controlled substance at d/c from ED?: No Referrals: Cedrick Bustos MD [Primary Care Provider] - 1-2 days Time of Disposition: 04:36
[2024-08-18 03:53] LABS: Influenza A Not Detected (Not Detectd); Influenza B Not Detected (Not Detectd); RSV Detected (Not Detectd)
[2024-08-18 04:27] LABS: Amphetamine Screen,Urine Detected (NotDetected); Barbiturate Screen,Urine Not Detected (NotDetected); Benzodiazepines Screen,Urine Not Detected (NotDetected); Cocaine Screen,Urine Not Detected (NotDetected); Methadone Screen, Urine Not Detected (NotDetected); Opiate Screen,Urine Not Detected (NotDetected); Oxycodone Screen, Urine Not Detected (NotDetected); Phencyclidine Screen,Urine Not Detected (NotDetected); Tricyclic Antidepressant,Urine Not Detected (NotDetected); Urn Cannabinoid Scrn Not Detected (NotDetected)
[2024-08-18] MEDS ORDERED: NALOXONE 0.4 MG/ML 1 ML VIAL IV PRN (04:33)
[2024-08-18] MEDS ORDERED: ACETAMINOPHEN TAB 325 MG TAB PO PRN (04:33)
--- NOTE | 2024-08-18 11:34 | P.CN ---
Psychiatric Consult - . Consult:: IDENTIFYING DATA: This patient is a 39 year old single man, currently residing at [facility]. REASON FOR REFERRAL: Psychiatry was consulted for suicidal ideation. HISTORY OF PRESENT ILLNESS: Zac Manley is a 39 year old man with a history of depression and alcohol use disorder who presented to the emergency department overnight endorsing suicidal ideation. Per the EPS Assessment note "Patient states he came in due to suicidal thoughts. Patient states he is currently living at [facility], but he states living there makes him want to hurt himself. When asked if he would feel safe going back, patient stated he would likely kill himself. Patient is wrapped in blankets and makes minimal eye contact during assessment. Patient denies A/V hallucinations, endorses paranoia but does not specify." When assessed at the bedside this morning, Mr. Manley explained that he rec ently experienced the loss of his older brother, two weeks ago, secondary to complications from alcohol abuse. He was taking part in local "Pub Crawl" festivities yesterday and drank at least 4, 24 ounce beers. He notes that the feelings of sadness related to the grief from his brother's passing were increased due to the alcohol use. He was "buzzing" when he came into the ER and his "words were mixed up." He explained, he had no intentions of harming himself or ending his life but felt he needed someone to talk to about the sadness he felt. This morning, he is no longer experiencing the effects of the alcohol and is not feeling the emotions as intensely as he was. He denies suicidal ideation, intent, and plan. He explained he did not have identified method or intent last night when he came in and continues to assert "I don't want to ." He is future-oriented in his desire to go back to [facility] and feels he has a good network of social support through his Mom and other family members. Prior to last night's alcohol binge he had two, 24 ounce beers three days ago. He denies daily or regular alcohol use at present. His UDS was positive for methamphetamine upon arrival in the ER yesterday though he denies any drug use when asked directly. Regarding other psychiatric symptoms, he denies feeling persistently sad or down, mostly noticing feeling associated with grief. He denies experiencing auditory or visual hallucinations. He denies paranoia. He also denies homicidal ideation, intent, or plan. His current medication regimen includes quetiapine 150 mg at bedtime and Paxil 20 mg daily. He reports taking the Paxil when he feels depressed but takes the quetiapine each night. He is still engaged in care with [facility] and has an appointment with his therapist (Manda) next week. He denies access to firearms. PAST PSYCHIATRIC HISTORY: Patient has a history of depression and alcohol use disorder. He is currently receiving care through [facility]. He is on Seroquel 150 mg at bedtime and Paxil 20 mg daily; he takes the Seroquel regularly but only takes the Paxil when he is feeling down. He has a history of prior inpatient admission at this hospital 06/22/2024 through 06/28/2024 for depression and suicidal ideation complicated by alcohol use. He denies any history of suicide attempts in the past. PAST MEDICAL HISTORY: Hypertension ALLERGIES: Diphenhydramine CHEMICAL DEPENDENCY HISTORY: as per HPI. FAMILY PSYCHIATRIC/SUBSTANCE USE HISTORY: Patient reports an extensive family history of alcohol abuse. He recently lost his 41-year-old brother secondary to complications of alcohol. He denies any history of family members who have by suicide. He also denies any family history of depression anxiety or other psychiatric conditions. SOCIAL HISTORY: Patient is the youngest of 5 children. His father at age 36 while incarcerated. He reports good relationships with his mom and living siblings. He recently lost his brother 2 weeks ago to complications from alcohol abuse. He has 2 children; one is of adult age. He left high school in the 10th grade. Patient presently resides at [facility] where he has been for the last 6 months. He is not presently employed and had been receiving disability prior to a period of incarceration. He has been incarcerated a total of 11 years throughout his lifetime and secondary to drug and alcohol related offenses. Denies any access to firearms. MENTAL STATUS EXAM: General Appearance: Patient appears to be stated age is alert, pleasant, and cooperative. Patient appears to have fair hygiene and grooming. Hair is in locs, several visible face/arm tattoos, wearing hospital gown with fair eye contact. Behavior: Patient is calmly sitting up in a chair without any agitated behavior. Speech: Patient's speech is fluent and nonpressured. Mood/Affect: Patient reports their mood is "better", affect is congruent Suicidality/Homicidality: Patient denies having any suicidal or homicidal ideation, intent, or plan. Perceptions: Patient denies any visual hallucinations and denies any auditory hallucinations Though content/process: There is no evidence of any delusional thought content and thought process is linear and goal-directed. Memory and concentration: AOX3, grossly intact for the purposes of this session. Able to recall recent and remote events with accuracy as confirmed in the medical record. Judgment and insight: Fair IMPRESSIONS: Zac Manley is a 39-year-old man with a history of depression and alcohol use disorder who presented to the emergency department with concern for suicidal ideation in the context of alcohol and substance use. He notes that he recently lost a sibling and felt intensifying sadness related to this loss in the context of his alcohol use yesterday. He expressed reasonable insight about the nature of alcohol to intensify his feelings and acknowledged that in the midst of his distress he found it helpful to talk to someone about what was going on. He den ies suicidal ideation, identified method, intent, or plan today. He clarified that he did not have intent or identified method to harm himself yesterday when he came in but was feeling overwhelmingly sad. He has a history of challenges with using alcohol and drugs which can lend itself towards impulsivity and impaired decision-making, however, he is currently in a structured half-way house environment and does have some measure of accountability regarding his substance use. In addition, he has emerging insight about the ways in which substance use contributes to emotional distress. At present, the acute risk of self directed violence is assessed to be low; he has several protective factors including current residence and a structured living environment, good relationships with family and friends, and active engagement in treatment on an outpatient basis. His risk factors for self directed violence long-term include a history of problematic substance use, and his existing mental health diagnosis. Mr. Manley is future oriented in regards to his plan to go to his therapy appointment at [facility] this week; also endorses a plan to continue taking his medication and felt safe to be discharged back to [facility] here on house. He is aware of ways by which she can seek emergency help in the future in the event suicidal ideation returns. PLAN: -At this time patient DOES NOT meet criteria for inpatient psychiatric admission. Patient can be discharged. -Would recommend the following medication changes/additions: No changes at this time -Can discontinue 1:1 sitter at this time as patient is not currently an imminent threat to themselves -[employer] spoke with patient about substance abuse and the harmful effects on medical and mental health, patient verbally understood and agreed. -Communicated plan to patient's nurse -Psychiatry will sign off at this time -Please contact with any questions.
[2024-08-18 12:04] VITALS: RESP 16
[2024-08-18 12:55] VITALS: BP 127/86; PULSE 73; TEMP 97.8
--- NOTE | 2024-08-18 18:59 | DS ---
DISCHARGE SUMMARY CHIEF COMPLAINT: Acute alcohol intoxication, depression, and suicidal thoughts. HISTORY OF PRESENT ILLNESS AND PHYSICAL EXAMINATION: Details of this man's history and physical can be found in the initial workup. LABORATORY STUDIES: While he is in the hospital, he had laboratory studies, details of which can be found in the laboratory section of his chart. COURSE IN THE HOSPITAL: After admission, he was placed on bedrest, started on intravenous fluids and suicide precautions. After he became sober, he was evaluated by Psychiatry who felt that he did not need to be admitted to the psychiatric unit and that he could be discharged safely. He will be followed up in the office. FINAL DIAGNOSES: 1. Acute alcohol intoxication. 2. Depression. 3. Suicidal thoughts. 4. Chronic alcoholism. OPERATIONS: None. CONSULTATIONS: Psychiatry. He is improved. ANDI / MADDIE: [id number] /
--- NOTE | 2024-08-18 20:38 | HP ---
HISTORY AND PHYSICAL CHIEF COMPLAINT: Acute alcohol intoxication, depression, and suicidal personality. HISTORY OF PRESENT ILLNESS: This gentleman presented to the emergency room, intoxicated and was threatening to kill himself. He was admitted. REVIEW OF SYSTEMS: Unremarkable. PAST MEDICAL HISTORY: Not obtainable. FAMILY HISTORY: Not obtainable. PERSONAL AND SOCIAL HISTORY: Not obtainable. PHYSICAL EXAMINATION: VITAL SIGNS: Normal. HEAD, EARS, EYES, NOSE, MOUTH, AND THROAT: Normal. CHEST: Clear. CARDIAC EXAM: Normal. ABDOMEN: Soft, nontender. EXTREMITIES: Normal. NEUROLOGIC: He is intact. He is intoxicated. ASSESSMENT: He is admitted to the hospital with diagnoses of. 1. Acute alcohol intoxication. 2. Major depression. 3. Chronic alcoholism. 4. Suicidal personality. PLAN: 1. Bed rest. 2. IV fluids. 3. [facility] protocol. 4. Psychiatric consult. ANDI / MADDIE: [id number] /
== END 2024-08-18 13:04 | disposition home or self-care (01) | DRG 775 ==
LOC: EC 02:50 → 4SSUR 04:34
PROVIDERS: ADMIT Family Medicine; ATTEND Family Medicine
DX: F10.229 Alcohol dependence with intoxication, unspecified (principal); F32.9 Major depressive disorder, single episode, unspecified; R45.851 Suicidal ideations; F41.9 Anxiety disorder, unspecified; F17.210 Nicotine dependence, cigarettes, uncomplicated; Z79.899 Other long term (current) drug therapy; Z63.4 Disappearance and death of family member; Z81.1 Family history of alcohol abuse and dependence
CPT/HCPCS: 80306; 82075; 87636; 99285